=== PATIENT | female | born 1985 | race Caucasian/White ===

== ENCOUNTER 2018-04-09 09:45 | Day surgery (SDC) | payer OTHER ==
[2018-04-09] MEDS ORDERED: CEFAZOLIN/SWI 1gm 0 GM/0 ML SYR ONE (10:06)
[2018-04-09] MEDS ORDERED: Ringers Lactate 1,000 ML IV ONE ×2 (10:06→14:08)
[2018-04-09 10:13] LABS: Specific Gravity 1.015 (1.005-1.030)
[2018-04-09] MEDS ORDERED: NS 0.9% VIAL 0 ML ONE (11:31)
[2018-04-09] MEDS ORDERED: SILVER NITRATE 1 APPL TOP ONE (11:31)
[2018-04-09] MEDS ORDERED: VASOPRESSIN 20 UNIT/ML VIAL ONE (11:32)
[2018-04-09] MEDS ORDERED: PROPOFOL 200 MG/20 ML VIAL IV ONE (11:37)
[2018-04-09] MEDS ORDERED: MIDAZOLAM HCL 2 MG/2 ML INJ ONE (11:38)
[2018-04-09] MEDS ORDERED: FENTANYL CITR 100 MCG/2 ML ONE (11:38)
[2018-04-09] MEDS ORDERED: KETOROLAC 30 MG/ML INJ ONE (12:40)
[2018-04-09] MEDS ORDERED: ONDANSETRON HCL 40 MG/20 ML VIAL ONE (13:03)
[2018-04-09] MEDS: MEPERIDINE HCL 50 MG/ML AMP ONE ×6 (13:38→14:50)
[2018-04-09] MEDS ORDERED: PROMETHAZINE 25 MG/ML VIAL ONE (13:41)
[2018-04-09] MEDS ORDERED: NA CHLORIDE 0.9% 1,000 ML ONE (13:44)
[2018-04-09] MEDS: MIDAZOLAM HCL 2 MG/2 ML INJ ONE ×2 (14:00→14:30)
[2018-04-09] MEDS ORDERED: HYDROCODONE/APAP 5/325 MG TAB ONE (15:13)
[2018-04-09] MEDS ORDERED: ONDANSETRON 4 MG/2 ML VIAL ONE (15:21)
[2018-04-09] MEDS: HYDROCODONE/APAP 5/325 MG TAB ONE ×2 (15:26→16:50)
[2018-04-09 16:20] VITALS: BP 133/90; TEMP 97.1; O2SAT 99
[2018-04-09] MEDS ORDERED: IBUPROFEN 200 MG TAB PO ONE (16:35)
--- NOTE | 2018-04-09 20:09 | OP ---
Date of Procedure: 04/09/2018 Surgeon: Selam Saenz MD Structural Fitter: No assistance. Preoperative Diagnoses: Heavy menstrual bleeding with regular cycles, dysmenorrhea, and anemia. The patient is status post medical treatment and intrauterine device. The strings of the intrauterine d evice were not found at this time in the office and so retained intrauterine device was her other joanna gnosis. Postoperative Diagnoses: Menorrhagia, dysmenorrhea, anemia, and no intrauterine devices found. Procedures Performed: Diagnostic hysteroscopy followed by endometrial ablation with hydrothermal abl ation. Specimens: No specimens. Complications: No complications. Drains: No drains. Condition: The patient is stable. Anesthesia: General with LMA. Findings: Uterus was anteflexed. The cavity was empty. No IUD was found. No evidence of any perfo ration or any scarring on the entire uterine wall on thorough examination with the diagnostic hystero scope. Hydrothermal ablation was done, and there was excellent ablation effect globally in the endom etrial canal. Procedure In Detail: After the patient was consented, she was taken back to the OR. The patient has been taking doxycycline and this should be adequate coverage, and instructions were given to the pat ient to finish out her doxycycline. After taking her to the OR, placed in a supine fashion on the operating table, general anesthesia was given. She was placed in a dorsal lithotomy position using Uche stirrups. Pelvic exam performed. Uterus anteflexed. No adnexal masses. Speculum was placed to expose the cervix. Betadine prep x3 was done. The external os was slightly opened up with the tip of hemostat. Then, using 2 Allis clam ps on the anterior lip, diagnostic hysteroscopy with the operative sheath and forceps through this wa s done, and once the cervical canal was entered, there was no evidence of any strings. Progressed in to the endometrial canal. No evidence of IUD or strings. Close examination of all sharp was seen fo r any evidence of prior scar or perforation, none were present. The cornual end of the tube had the opening anatomically consistent with location of the tubes. The scope was removed. Then ablation wa s started. The HTA sheath was primed. Then without any further dilation of the cervix, this was terry rachele into the uterine cavity, and the tip of the scope was placed at the base of the endometrial canal . Could not advance it any further. Once the position was established to be appropriate, the Allis was hooked onto the HTA sheath. Posterior fornix tucked and packed with 2 Ray-Tecs. Then cavity int egrity test was done which passed without any problems. Then ablation cycle was started including th e heating cycle, 10 minute ablation cycle, 1-1/2 minutes including cooling cycle, overall, conducted without any interruption and ablation went very well. There was excellent ablation effect. Pictures were taken. The cavity was rinsed out with further diagnostic hysteroscopy and Ray-Tecs and the sco pe were both removed. Speculum was removed. The patient was recovered from anesthesia and taken to the PACU in stable condition. She was given 30 mg of Toradol in the OR. She will follow up with me in 3 weeks. DEMI/IRMA Voice ID: [id number] Report ID: [id number]
== END 2018-04-09 16:58 | disposition home or self-care (01) ==
LOC: OR 09:45
PROVIDERS: ATTEND Obstetrics & Gynecology
PROC: 0U5B8ZZ Destruction of Endometrium, Via Natural or Artificial Opening Endoscopic (ICD-10-PCS; principal; 2018-04-09 11:00)
DX: N92.0 Excessive and frequent menstruation with regular cycle (principal); N94.6 Dysmenorrhea, unspecified; Z30.432 Encounter for removal of intrauterine contraceptive device; I10 Essential (primary) hypertension; D64.9 Anemia, unspecified; E78.5 Hyperlipidemia, unspecified; K21.9 Gastro-esophageal reflux disease without esophagitis; Z88.6 Allergy status to analgesic agent; Z88.2 Allergy status to sulfonamides; Z90.49 Acquired absence of other specified parts of digestive tract; Z82.49 Family history of ischemic heart disease and other diseases of the circulatory system; Z82.3 Family history of stroke
CPT/HCPCS: 81025; J0690; J2175; J2250; J2405; J2550; J3010; J7030

== ENCOUNTER 2021-08-01 18:29 | Emergency (ER) | payer OTHER ==
--- NOTE | 2021-08-01 21:20 | RAD REPORT ---
EXAM DESCRIPTION: RAD - Chest Pa And Lat (2 Views) - 08/01/2021 8:48 pm CLINICAL HISTORY: Cough;Dyspnea Chest pain. COMPARISON: Chest Pa And Lat (2 Views) dated 11/09/2015; CHEST PA AND LAT 2 VIEW dated 08/09/2013; CHEST PA AND LAT 2 VIEW dated 04/25/2008; CHEST PA AND LAT 2 VIEW dated 04/10/2006 FINDINGS: The lungs are clear. The heart is normal in size. No displaced fractures. Small hiatal her almita.
--- NOTE | 2021-08-01 21:48 | ER ---
Nurse's Notes [facility] Name: Lisy North Age: 35 yrs Sex: Female : 1985 Arrival Date: 08/01/2021 Time: 19:03 Bed 11 Private MD: Diagnosis: Acute upper respiratory infection, unspecified Presentation: 08/01 19:49 Chief complaint: Patient states: feeling short of breath today, headaches and low grade sm5 fevers for 3 days. Coronavirus screen: cough unrelated to allergies, difficulty breathing, fatigue, headache. Ebola Screen: No symptoms or risks identified at this time. Initial Sepsis Screen: Does the patient meet any 2 criteria? No. Patient's initial sepsis screen is negative. Does the patient have a suspected source of infection? No. Patient's initial sepsis screen is negative. Risk Assessment: Do you want to hurt yourself or someone else? Patient reports no desire to harm self or others. Onset of symptoms was July 29, 2021. 19:49 Method Of Arrival: Ambulatory [facility] 19:49 Acuity: DAHIANA 3 sm5 Triage Assessment: 19:51 General: Appears in no apparent distress. Behavior is cooperative. Pain: Complains of sm5 pain in generalized. Neuro: No deficits noted. Level of Consciousness is awake, alert, Oriented to person, place, time, situation. Respiratory: Reports shortness of breath cough that is Airway is patent Trachea midline Respiratory effort is even, unlabored. Historical: - Allergies: 19:52 Ceclor; sm5 19:52 Codeine; sm5 19:52 Sulfa (Sulfonamide Antibiotics); sm5 - Home Meds: 19:52 losartan oral [Active]; amlodipine oral [Active]; sm5 - PMHx: 19:52 Hypertension; sm5 - PSHx: 19:52 section; Appendectomy; Total abdominal hysterectomy; Gallbladder removal; sm5 hernia repair; - Immunization history:: Client reports receiving the Adan \\T\\ Adan single-dose vaccine. - Social history:: Smoking status: unknown. Screenin:43 Abuse screen: Denies threats or abuse. Nutritional screening: No deficits noted. bb Tuberculosis screening: No symptoms or risk factors identified. Fall Risk None identified. Assessment: 21:43 General: Appears in no apparent distress. Behavior is calm, cooperative. Neuro: Level bb of Consciousness is awake, alert, obeys commands, Oriented to person, place, time, situation. Cardiovascular: Capillary refill < 3 seconds Patient's skin is warm and dry. Respiratory: Respiratory effort is even, unlabored. GI: No deficits noted. Derm: Skin is pink, warm \\T\\ dry. Musculoskeletal: Circulation, motion, and sensation intact. 21:52 Reassessment: Patient is alert, oriented x 3, equal unlabored respirations, skin bb warm/dry/pink. pt verbalized understanding of and agrees to plan of care discharge instructions given pt ambulated with steady gait to exit. Vital Signs: 19:49 BP 154 / 97; Pulse 94; Resp 19; Temp 98.3; Pulse Ox 100% on R/A; Weight 81.65 kg; 5 Height 5 ft. 1 in. (154.94 cm); 19:49 Body Mass Index 34.01 (81.65 kg, 154.94 cm) [facility] ED Course: 19:03 Patient arrived in ED. as 19:35 Jacki Bueno FNP-C is [facility]. kb 19:35 Florentin Pinto MD is Attending Physician. kb 19:51 Triage completed. [facility] 19:57 Influenza Screen (A Sent. [facility] 19:57 COVID-19 (Coronavirus) Document "Date of Onset" if Symptomatic Sent. [facility] 19:57 Flu Sent. [facility] 20:48 Chest Pa And Lat (2 Views) XRAY In Process Unspecified. EDMS 21:43 Alee Reardon, RN is Primary Nurse. bb 21:43 Patient has correct armband on for positive identification. Call light in reach. bb 21:53 No provider procedures requiring assistance completed. Patient did not have IV access bb during this emergency room visit. Administered Medications: No medications were administered Outcome: 21:47 Discharge ordered by MD. kb 21:53 Discharged to home ambulatory. bb 21:53 Condition: stable 21:53 Discharge instructions given to patient, Instructed on discharge instructions, follow up and referral plans. Demonstrated understanding of instructions, follow-up care. 21:53 Patient left the ED. bb Signatures: Dispatcher [employer] EDMS Jacki Bueno FNP-C FNP-Ckb Martinez, Amelia as Alee Reardon, RN RN Nicolasa Julian RN RN 5 Corrections: (The following items were deleted from the chart) 19:55 19:52 PSHx: Repair of inguinal hernia; sm5 sm5 19:58 19:49 BP 158 / 111; Pulse 94bpm; Resp 19bpm; Pulse Ox 100% RA; Temp 98.3F; 81.65 kg; sm5 Height 5 ft. 1 in.; BMI: 34.0; sm5
--- NOTE | 2021-08-01 21:48 | EDPHYS ---
Physician Documentation [facility] Name: Lisy North Age: 35 yrs Sex: Female : 1985 Arrival Date: 08/01/2021 Time: 19:03 Bed 11 Private MD: ED Physician Florentin Pinto HPI: 08/01 23:19 This 35 yrs old Female presents to ER via Ambulatory with complaints of cough, SOB, kb fever. 23:19 The patient or guardian reports cough, that is intermittent, difficulty breathing, flu kb symptoms, low-grade fever. 23:19 Onset: The symptoms/episode began/occurred 3 day(s) ago. Severity of symptoms: At their kb worst the symptoms were moderate, in the emergency department the symptoms are unchanged. Modifying factors: The symptoms are alleviated by nothing, the symptoms are aggravated by nothing. Associated signs and symptoms: Pertinent positives: fever, Pertinent negatives: chest pain, diarrhea, ear ache, nausea, rhinorrhea, sore throat, vomiting. The patient has not experienced similar symptoms in the past. The patient has not recently seen a physician. Pt reports cough, shortness of breath, fatigue, fever and headaches for 3 days. Historical: - Allergies: 19:52 Ceclor; sm5 19:52 Codeine; sm5 19:52 Sulfa (Sulfonamide Antibiotics); sm5 - Home Meds: 19:52 losartan oral [Active]; amlodipine oral [Active]; sm5 - PMHx: 19:52 Hypertension; sm5 - PSHx: 19:52 section; Appendectomy; Total abdominal hysterectomy; Gallbladder removal; sm5 hernia repair; - Immunization history:: Client reports receiving the Adan \\T\\ Adan single-dose vaccine. - Social history:: Smoking status: unknown. ROS: 23:17 Abdomen/GI: Negative for abdominal pain, nausea, vomiting, diarrhea, and constipation. kb 23:17 Constitutional: Positive for chills, fatigue, fever, malaise. 23:17 Respiratory: Positive for cough, shortness of breath, Negative for dyspnea on exertion, hemoptysis, orthopnea, pleurisy, sputum production, wheezing. 23:17 Neuro: Positive for headache. 23:17 All other systems are negative. Exam: 23:18 Constitutional: This is a well developed, well nourished patient who is awake, alert, kb and in no acute distress. Head/Face: Normocephalic, atraumatic. ENT: Moist Mucous membranes Cardiovascular: Regular rate and rhythm with a normal S1 and S2. No gallops, murmurs, or rubs. No pulse deficits. Respiratory: Respirations even and unlabored. No increased work of breathing. Talking in full sentences Skin: Warm, dry with normal turgor. Normal color. MS/ Extremity: Pulses equal, no cyanosis. Neurovascular intact. Full, normal range of motion. Neuro: Awake and alert, GCS 15, oriented to person, place, time, and situation. Moves all extremities. Normal gait. Psych: Awake, alert, with orientation to person, place and time. Behavior, mood, and affect are within normal limits. Vital Signs: 19:49 BP 154 / 97; Pulse 94; Resp 19; Temp 98.3; Pulse Ox 100% on R/A; Weight 81.65 kg; sm5 Height 5 ft. 1 in. (154.94 cm); 19:49 Body Mass Index 34.01 (81.65 kg, 154.94 cm) 5 MDM: 19:53 Patient medically screened. kb 23:17 Data reviewed: vital signs, nurses notes. Data interpreted: Pulse oximetry: on room air kb is 100 %. Interpretation: normal. Counseling: I had a detailed discussion with the patient and/or guardian regarding: the historical points, exam findings, and any diagnostic results supporting the discharge/admit diagnosis, lab results, radiology results, the need for outpatient follow up, a family practitioner, to return to the emergency department if symptoms worsen or persist or if there are any questions or concerns that arise at home. 08/01 19:53 Order name: Flu 08/01 19:53 Order name: COVID-19 (Coronavirus) Document "Date of Onset" if Symptomatic kb 08/01 19:54 Order name: Chest Pa And Lat (2 Views) XRAY; Complete Time: 21:26 kb 08/01 19:54 Order name: Influenza Screen (A ; Complete Time: 20:50 EDMS Administered Medications: No medications were administered Disposition: 08/02 00:44 Co-signature as Attending Physician, Florentin Pinto MD. pkl Disposition Summary: 08/01/21 21:47 Discharge Ordered Location: Home kb Condition: Stable kb Diagnosis - Acute upper respiratory infection, unspecified kb Followup: kb - With: Emergency Department - When: As needed - Reason: Worsening of condition Followup: kb - With: Private Physician - When: 2 - 3 days - Reason: Recheck today's complaints, Continuance of care, Re-evaluation by your physician Discharge Instructions: - Discharge Summary Sheet kb - Upper Respiratory Infection, Adult, [id number] kb - Viral Respiratory Infection, [id number] kb Forms: - Medication Reconciliation Form kb - Thank You Letter kb - Antibiotic Education kb - Prescription Opioid Use kb Signatures: Dispatcher [employer] EDMS Jacki Bueno, RADIO EQUIPMENT REPAIRER-C RADIO EQUIPMENT REPAIRER-Florentin Blue MD MD pkl Ballard, Brenda, RN RN Nicolasa Julian, RN RN sm5 Corrections: (The following items were deleted from the chart) 08/01 19:55 19:52 PSHx: Repair of inguinal hernia; sm5 sm5 23:20 23:19 Pt reports cough, shortness of breath, fever and headaches for 3 days. kb kb
[2021-08-01 22:22] VITALS: BP 154/97; TEMP 98.3; O2SAT 100
== END 2021-08-01 21:53 | disposition home or self-care (01) ==
LOC: ER 18:29
DX: J06.9 Acute upper respiratory infection, unspecified (principal); I10 Essential (primary) hypertension; Z88.6 Allergy status to analgesic agent; Z88.2 Allergy status to sulfonamides; Z20.822 Contact with and (suspected) exposure to COVID-19
CPT/HCPCS: 87804 ×2; 71046; 99283; U0002